=== PATIENT | female | born 1955 | race Caucasian/White ===

== ENCOUNTER → 2018-10-25 | Emergency (ER) | payer OTHER | END | disposition home or self-care (01) | LOC: FTE 10:53 | DX: Z48.01 Encounter for change or removal of surgical wound dressing (principal); I10 Essential (primary) hypertension | CPT/HCPCS: 99281; Z7502 ==

== ENCOUNTER 2018-10-27 07:48 | Emergency (ER) | payer OTHER ==
[2018-10-27] MEDS: BACITRACIN 0.5%/ZINC 28.35 GM OINT TOP (08:23)
== END 2018-10-27 11:10 | disposition home or self-care (01) ==
LOC: FTE 07:48
DX: Z48.01 Encounter for change or removal of surgical wound dressing (principal); I10 Essential (primary) hypertension
CPT/HCPCS: 99281; Z7502